=== PATIENT | male | born 1990 | race Two or more races ===

== ENCOUNTER 2025-09-17 09:43 | Emergency (ER) | payer OTHER, SELFPAY ==
[2025-09-17 09:44] VITALS: BMI 30.9
--- NOTE | 2025-09-17 10:02 | EDNOTE_ITS ---
Upper Respiratory Inf. RME/HPI General Chief Complaint: Flu Like Symptoms Stated Complaint: BACK PAIN, LEG PAIN, COUGH, N/V X1 WEEK Time Seen by Provider: 09/17/25 09:51 Source: patient Arrival date/time: 09/17/25 09:43 34-year-old male with no known medical history presents to the emergency room with a chief complaint of bodyaches, cough, congestion, nausea, vomiting x 1 week Mode of arrival: ambulatory Limitations: no limitations Related Data Previous Rx's ?Medication ?Instructions ?Recorded albuterol sulfate 90 mcg/actuation 2 puff inhalation Q 6H PRN 09/17/25 aerosol inhaler (Ventolin HFA) shortness of breath or wheezing #6.7 grams ibuprofen 800 mg tablet 800 mg PO Q8H #30 tabs 09/17 ondansetron 4 mg disintegrating 4 mg PO Q8H PRN nausea and 09/17/25 tablet vomiting #14 tabs Allergies Allergy/AdvReac Type Severity Reaction Status Date / Time No Known Allergies Allergy Verified 09/17/25 09:47 Review of Systems Review of Systems Systems Reviewed: All systems reviewed, normal except as documented Constitutional Constitutional: Reports system reviewed and no additional complaints, except as documented, Denies fatigue, Denies fever(s), Denies headache(s) and Denies wea kness Eyes Eyes: Reports system reviewed and no additional complaints, except as documented, Denies blurry vision and Denies change in vision ENT Ears, Nose, Mouth, and Throat: Reports system reviewed and no additional complaints, except as documented, Denies otalgia, Denies headache(s), Denies nasal congestion, Denies throat swelling and Denies vertigo Cardiovascular Cardiovascular: Reports system reviewed and no additional complaints, except as documented, Denies chest pain, Reports dyspnea and Denies dyspnea on exertion Respiratory Respiratory: Reports system reviewed and no additional complaints, except as documented, Reports chest congestion, Reports cough, Reports dyspnea, Denies dyspnea on exertion and Denies wheezing Gastrointestinal Gastrointestinal: Reports system reviewed and no additional complaints, except as documented, Denies abdominal pain, Denies cramping, Denies nausea and Denies vomiting Genitourinary Genitourinary: Reports system reviewed and no additional complaints, except as documented, Denies dysuria and Denies hematuria Musculoskeletal Musculoskeletal: Reports system reviewed and no additional complaints, except as documented and Denies back pain Integumentary/Breasts Skin/Breast: Reports system reviewed and no additional complaints, except as documented and Denies wounds Neurologic Neurologic: Reports system reviewed and no additional complaints, except as documented, Denies confusion, Denies headache(s), Denies lack of coordination, Denies vertigo and Denies weakness Psychiatric Psychiatric: Reports system reviewed and no additional complaints, except as documented, Denies anxiety, Denies confusion, Denies depression, Denies paranoia, Denies suicidal ideation and Denies tactile hallucinations Endocrine Endocrine: Reports system reviewed and no additional complaints, except as documented and Denies fatigue Hematologic/Lymphatic Hematologic/Lymphatic: Reports system reviewed and no additional complaints, except as documented and Denies lymphadenopathy Allergic/Immunologic Allergic/Immunologic: Reports system reviewed and no additional complaints, except as documented, Denies throat swelling, Denies urticaria and Denies wheezing ED Exam General Limitations: Present no limitations General appearance: Present alert and in no apparent distress Head Head exam: Present atraumatic Eye Eye exam: Present normal appearance, PERRL and EOMI ENT ENT exam: Present normal exam, normal oropharynx and mucous membranes moist Neck Neck exam: Present normal inspection, full ROM and trachea midline Chest Chest inspection: Present normal inspection and symmetric chest wall rise Respiratory Respiratory exam: Present normal lung sounds bilaterally; Absent respiratory distress, wheezes, stridor, accessory muscle use or prolonged expiratory phase Cardiovascular Cardiovascular exam: Present regular rate, normal rhythm, normal heart sounds, +S1 and +S2; Absent tachycardia or irregular rhythm Abdominal Exam Abdominal exam: Present soft and normal bowel sounds Extremities Exam Extremities exam: Present normal inspection and full ROM Back Exam Back exam: Present normal inspection and full ROM Neurological Exam Neurological exam: Present alert, oriented X3 and CN II-XII intact Psychiatric Psychiatric exam: Present normal affect and normal mood Skin Skin exam: Present warm, dry, intact and normal color Course Quality Measures none Orders Category Date Time Status Bedside COVID-19 Antigen Test NOW Care 09/17/25 10:01 Active Bedside Influenza A&B Antigen Test NOW Care 09/17/25 10:01 Completed XR chest 1V portable Stat Exams 09/17/25 10:01 Completed Acetaminophen Tab [Tylenol ES Tab] Med 09/17/25 10:01 Discontinued 1,000 mg PO X1 ONE Ondansetron Odt [Zofran Odt] Med 09/17/25 10:01 Discontinued 4 mg PO X1 ONE Vital Signs Vital signs: Vital Signs Temperature 99.9 F 09/17/25 10:19 Pulse Rate 126 H 09/17/25 10:19 Respiratory Rate 20 09/17/25 10:19 Blood Pressure 118/76 09/17/25 10:19 Pulse Oximetry (%) 94 L 09/17/25 10:19 Oxygen Delivery Method Room Air 09/17/25 10:19 Upper Respiratory Infection MDM Narrative MDM Narrative:: 34-year-old male with no known medical history presents to the emergency room with a chief complaint of bodyaches, cough, congestion, nausea, vomiting x 1 week Patient is hemodynamically stable and in no apparent distress Physical examination shows clear bilateral lung sounds there is no wheezing or any abnormal breath sounds. The patient is afebrile, has some tachycardia but no tachypnea and is afebrile Chest x-ray was completed and was negative for any pneumonic infiltrates. The patient tested positive for influenza A Patient was discharged and educated to follow-up with primary care provider in the next 24 to 48 hours and return to the emergency room for any evidence of worsening signs or symptoms Patient data External records reviewed:: [facility] previous records Clinical information provided by:: patient Social determinants that could affect healthcare access:: none Patient has the following chronic illnesses:: No chronic illness How is presenting disease/condition affected by chronic disease/condition?: no chronic disease Evaluation data The following diagnostics were reviewed and interpreted by me:: lab results and radiology exam(s) Lab and/or radiology exams considered but not ordered:: Labs and radiology exams considered and ordered Interpretation Summary: Chest [id number]: Heart mediastinum appear normal right lung and pleural space are clear normal. There is no pleural fluid on the left, however there is slight obscuration of the apex of the cardiac shadow No bony abnormalities are seen. IMPRESSION: 1. The only abnormality in the film is a localized area of obscuration of the cardiac apex with some mild increased opacity seen lateral to this area. This strongly raises the possibility of a very small infiltrate in the lingula in the left upper lobe. 2. A lateral film could be obtained to definitely confirm the presence of the small abnormality Medications / Prescriptions Medications or Prescriptions considered but not ordered:: Medication given yeah Medication administrations:: Medication Administration History Discontinued Medications Acetaminophen (Acetaminophen 500 Mg Tablet) 1,000 mg PO X1 ONE Stop: 09/17/25 10:02 Last Admin: 09/17/25 10:24 Dose: 1,000 mg Documented By: Ondansetron HCl (Ondansetron Odt 4 Mg Tabrap) 4 mg PO X1 ONE; Protocol Stop: 09/17/25 10:02 Last Admin: 09/17/25 10:24 Dose: 4 mg Documented By: Medication given Consultations Consultation(s) initiated? (list below): No Diagnosis Upper Respiratory Differential Diagnosis: upper respiratory infection, viral infection, bronchitis, influenza, pharyngitis and other (Community-acquired pneumonia) Most likely diagnosis given after review of the tests above:: Influenza Admission Indicated Admission indicated?: not indicated Admission Request Was there a request for admission?: No Disposition Plan Disposition Plan: Discharge Discharge Attestation Discharge Attestation: The patient and all family members were given an opportunity to ask questions and understood the discharge instructions. Discharge instructions specifically effects, indications for sooner follow up or return to the emergency department, and the expected course of current diagnosis. Patient condition: Stable Discharge Plan Plan Patient Disposition: HOME (Self Care) Discharge Disposition comment: Stable Prescriptions/Referrals Prescriptions/Med Rec: New ibuprofen 800 mg tablet 800 mg PO Q8H Qty: 30 0RF albuterol sulfate [Ventolin HFA] 90 mcg/actuation HFA aerosol inhaler 2 puff inhalation Q6H PRN (Reason: shortness of breath or wheezing) Qty: 6.7 0RF ondansetron 4 mg tablet,disintegrating 4 mg PO Q8H PRN (Reason: nausea and vomiting) Qty: 14 0RF Problem List Clinical Impression: Influenza A Patient/Caregiver Discharge Instructions Education Materials: ED Influenza (Adult) Additional Instructions: Please follow-up with your primary care provider in the next 24 to 48 hours. You tested positive for influenza A The treatment for this is symptom management. Please continue to take Tylenol and ibuprofen for fever management. Please increase your oral fluid intake. For any evidence of worsening signs or symptoms please return to the emergency room immediately Print Language: Guyanese Stand Alone Forms: [employer] Award Info., Work/School Release, Patient Portal Info Letter
[2025-09-17 10:19] VITALS: BP 118/76; PULSE 126; RESP 20; TEMP 37.7; O2SAT 94
[2025-09-17 10:24] VITALS: TEMP 37.7
[2025-09-17] MEDS: ONDANSETRON ODT 4 MG TABRAP PO (10:24)
[2025-09-17] MEDS: ACETAMINOPHEN 500 MG TABLET 1000 MG PO (10:24)
[2025-09-17 12:00] VITALS: PULSE 102; RESP 19; TEMP 37; O2SAT 97
== END 2025-09-17 14:39 | disposition home or self-care (01) ==
LOC: SERX 11:59
PROVIDERS: Emergency Provider Emergency Medicine
DX: J10.1 Influenza due to other identified influenza virus with other respiratory manifestations (principal)
CPT/HCPCS: 71045; 87502; 87635; 99283; Q0162; A9270